=== PATIENT | female | born 1940 | race Caucasian/White ===

== ENCOUNTER 2016-12-10 12:01 | Inpatient (IN) | payer MEDICARE, MEDICAID ==
[~2016-12-10] VITALS: Ht 144.8 cm; Wt 76.5 kg
[~2016-12-10 12:01] MED LIST: ASPI-1093 PO; CALC667C PO; CARV6.2534 PO; CLOP75 PO; GABA-529 PO; HYDR-4174 PO; INSNOV SQ; ISOS60TA4 PO; LE SQ; LISI20TA PO; NITR0.4T27 SL; PANT40TA PO; PARO20TA24 PO; PRAV20TA4 PO
[2016-12-10 12:17] LABS: GLUCOSE,POINT OF CARE 152 MG/DL (70-110)
[2016-12-10] MEDS ORDERED: RANI150T7 PO (13:57)
[2016-12-10] MEDS ORDERED: OMEP20 PO (13:57)
[2016-12-10] MEDS ORDERED: METO5TAB95 PO (13:57)
[2016-12-10] MEDS ORDERED: RANO500T3 PO (13:57)
[2016-12-10] MEDS ORDERED: MECL-111 PO (13:57)
[2016-12-10 14:01] LABS: BASOPHILS % (AUTO) 2.4 % (0.0-2.0); EOSINOPHILS % (AUTO) 1.9 % (1.0-6.0); HEMATOCRIT 38.1 % (36-46); HEMOGLOBIN 12.1 g/dL (12.0-16.0); LYMPHOCYTES # (AUTO) 1.2 K/uL (1.0-4.8); LYMPHOCYTES % (AUTO) 21.4 % (22.0-44.0); MEAN CORPUSCULAR HEMOGLOBIN 27.5 pg (26.0-34.0); MEAN CORPUSCULAR HGB CONC 31.7 G/dL (31.0-37.0); MEAN CORPUSCULAR VOLUME 87 fL (80-100); MONOCYTES # (AUTO) 0.6 K/uL (0.1-1.0); NEUTROPHILS # (AUTO) 3.7 K/uL (1.8-7.7); NEUTROPHILS % (AUTO) 64.3 % (40.0-70.0); PLATELET COUNT (AUTO) 132 K/uL (150-450); RED BLOOD CELL COUNT(AUTO) 4.39 MIL/uL (4.00-5.20); RED CELL DISTRIBUTION WIDTH 19.5 % (11.5-14.5); WHITE BLOOD COUNT (AUTO) 5.8 K/uL (4.5-11.0)
[2016-12-10 14:26] LABS: ANION GAP 11 mmol/L (8-16); CARBON DIOXIDE 29 mmol/L (22-29); CHLORIDE 97 mmol/L (98-107); CREATININE 2.83 mg/dL (0.60-1.30); GLOMERULAR FILTR. RATE CALC 16 mL/min (>60); POTASSIUM 3.6 mmol/L (3.5-5.1); SODIUM SERUM 137 mmol/L (136-145); UREA NITROGEN, BLOOD 21 mg/dL (7-18)
[2016-12-10 14:27] LABS: CALCIUM, TOTAL 8.3 mg/dL (8.8-10.5)
[2016-12-10 14:31] LABS: ALANINE AMINOTRANSFERASE 12 U/L (12-78); ASPARTATE AMINOTRANSFERASE 19 U/L (15-37); B-TYPE NATRIURETIC PEPTIDE > 5000 pg/mL (0-100); CREATINE KINASE, TOTAL 24 U/L (26-192); TOTAL PROTEIN, SERUM 6.8 g/dL (6.4-8.2)
[2016-12-10 17:49] LABS: INR 1.1 (0.9-1.1); PROTHROMBIN TIME 11.8 SEC (9.4-11.6)
[2016-12-10 17:52] LABS: RBC MORPHOLOGY COMMENT ABNORMAL RBC MORPH
[2016-12-10] MEDS ORDERED: ONDANSETRON HCL 4 MG/2 ML VIAL IVP PRN (20:15)
[2016-12-10] MEDS ORDERED: ACETAMINOPHEN 325 MG TABLET PO PRN (20:15)
[2016-12-10] MEDS ORDERED: 0.9% SODIUM CHLORIDE 10 ML SYRINGE IVP PRN (20:15)
[2016-12-10 21:27] VITALS: BP 124/61
[2016-12-11] VITALS (7 sets, daily range): BP systolic 100–130; BP diastolic 53–66
[2016-12-11] MEDS ORDERED: NITROGLYCERIN 0.4 MG SUBLINGUAL TABLET #25 SL PRN (00:30)
[2016-12-11] MEDS: CLOPIDOGREL BISULFATE 75 MG TABLET PO SCH (08:48)
[2016-12-11] MEDS: CARVEDILOL 6.25 MG TABLET PO SCH ×2 (08:48→20:31)
[2016-12-11] MEDS: HydrALAZINE HCL 50 MG TABLET PO SCH ×2 (08:48→15:41)
[2016-12-11] MEDS: ASPIRIN 81 MG EC TABLET PO SCH (08:48)
[2016-12-11] MEDS: MECLIZINE HCL 25 MG TABLET PO SCH ×3 (08:48→20:30)
[2016-12-11] MEDS: METOCLOPRAMIDE HCL 5 MG TABLET PO SCH ×3 (08:49→20:31)
[2016-12-11] MEDS: RANITIDINE HCL 150 MG TABLET PO SCH (08:49)
[2016-12-11] MEDS: RANOLAZINE 500 MG SR TABLET PO SCH ×2 (08:49→20:31)
[2016-12-11] MEDS: LISINOPRIL 20 MG TABLET PO SCH (08:49)
[2016-12-11] MEDS: INSULIN DETEMIR 100 UNITS/ML SQ SCH ×2 (08:51→20:37)
[2016-12-11] MEDS ORDERED: OMEPRAZOLE 20 MG CAPSULE PO SCH (09:00)
[2016-12-11] MEDS ORDERED: DEXTROSE 50%-WATER 25 GM/50 ML SYRINGE IVP PRN (14:45)
[2016-12-11 19:22] LABS: GLUCOSE,POINT OF CARE 90 MG/DL (70-110)
[2016-12-11 19:22] LABS: GLUCOSE,POINT OF CARE 155 MG/DL (70-110)
[2016-12-11] MEDS: PRAVASTATIN SODIUM 20 MG TABLET PO SCH (20:30)
[2016-12-11] MEDS: GABAPENTIN 100 MG CAPSULE PO SCH (20:31)
[2016-12-11] MEDS: INSULIN ASPART 100 UNITS/ML SQ PRN (20:40)
[2016-12-11] MEDS: ISOSORBIDE MONONITRATE 30 MG ER TABLET PO SCH (20:46)
[2016-12-12 03:41] LABS: GLUCOSE COMMENT 1 Received Meds; GLUCOSE,POINT OF CARE 151 MG/DL (70-110)
[2016-12-12 04:37] VITALS: BP 95/52
[2016-12-12 06:57] LABS: EOSINOPHILS % (AUTO) 4.9 % (1.0-6.0); HEMATOCRIT 35.7 % (36-46); HEMOGLOBIN 11.3 g/dL (12.0-16.0); LYMPHOCYTES # (AUTO) 1.1 K/uL (1.0-4.8); MEAN CORPUSCULAR HEMOGLOBIN 27.6 pg (26.0-34.0); MEAN CORPUSCULAR HGB CONC 31.6 G/dL (31.0-37.0); MEAN CORPUSCULAR VOLUME 88 fL (80-100); MONOCYTES # (AUTO) 0.6 K/uL (0.1-1.0); MONOCYTES % (AUTO) 11.3 % (2.0-9.0); NEUTROPHILS # (AUTO) 2.9 K/uL (1.8-7.7); NEUTROPHILS % (AUTO) 59.8 % (40.0-70.0); PLATELET COUNT (AUTO) 146 K/uL (150-450); RED BLOOD CELL COUNT(AUTO) 4.08 MIL/uL (4.00-5.20); RED CELL DISTRIBUTION WIDTH 19.8 % (11.5-14.5); WHITE BLOOD COUNT (AUTO) 4.9 K/uL (4.5-11.0)
[2016-12-12 07:07] LABS: ALBUMIN 2.8 g/dL (3.4-5.0); BILIRUBIN,TOTAL 0.9 mg/dL (0.1-1.0); CALCIUM, TOTAL 7.6 mg/dL (8.8-10.5); CHOL/HDL RATIO 2.2 (3.9-5.7); CREATININE 4.76 mg/dL (0.60-1.30); MAGNESIUM 2.1 mg/dL (1.80-2.40); POTASSIUM 3.9 mmol/L (3.5-5.1); TOTAL PROTEIN, SERUM 6.5 g/dL (6.4-8.2)
[2016-12-12 07:53] VITALS: BP 109/53
[2016-12-12] MEDS: ISOSORBIDE MONONITRATE 30 MG ER TABLET PO SCH ×2 (09:00→21:18)
[2016-12-12] MEDS: LISINOPRIL 20 MG TABLET PO SCH (09:00)
[2016-12-12] MEDS: CARVEDILOL 6.25 MG TABLET PO SCH ×2 (09:00→21:17)
[2016-12-12] MEDS: MECLIZINE HCL 25 MG TABLET PO SCH ×3 (09:06→21:18)
[2016-12-12] MEDS: ASPIRIN 81 MG EC TABLET PO SCH (09:06)
[2016-12-12] MEDS: CLOPIDOGREL BISULFATE 75 MG TABLET PO SCH (09:07)
[2016-12-12] MEDS: RANOLAZINE 500 MG SR TABLET PO SCH ×2 (09:07→21:17)
[2016-12-12] MEDS: METOCLOPRAMIDE HCL 5 MG TABLET PO SCH ×3 (09:07→21:18)
[2016-12-12] MEDS: RANITIDINE HCL 150 MG TABLET PO SCH (09:07)
[2016-12-12] MEDS: INSULIN DETEMIR 100 UNITS/ML SQ SCH ×2 (09:10→21:00)
[2016-12-12 10:25] LABS: RBC MORPHOLOGY COMMENT ABNORMAL RBC MORPH
[2016-12-12] MEDS ORDERED: INSLAN SQ (10:49)
[2016-12-12 11:30] VITALS: BP 102/54
[2016-12-12] MEDS ORDERED: SODIUM CHLORIDE 0.9% 2,000 ML IV ONE (13:11)
[2016-12-12] MEDS: PANTOPRAZOLE SODIUM 40 MG DR TABLET PO SCH (15:37)
[2016-12-12 15:54] VITALS: BP 131/67
[2016-12-12 19:39] VITALS: BP 132/62
[2016-12-12 20:03] LABS: GLUCOSE,POINT OF CARE 113 MG/DL (70-110)
[2016-12-12] MEDS: ACETAMINOPHEN 325 MG TABLET PO PRN (21:17)
[2016-12-12] MEDS: GABAPENTIN 100 MG CAPSULE PO SCH (21:18)
[2016-12-12] MEDS: PRAVASTATIN SODIUM 20 MG TABLET PO SCH (21:18)
[2016-12-12] MEDS: INSULIN ASPART 100 UNITS/ML SQ PRN (21:28)
[2016-12-12 23:01] LABS: GLUCOSE COMMENT 1 Received Meds; GLUCOSE,POINT OF CARE 205 MG/DL (70-110)
[2016-12-13 00:08] VITALS: BP 116/59
[2016-12-13 04:20] VITALS: BP 103/54
[2016-12-13 05:47] LABS: GLUCOSE,POINT OF CARE 76 MG/DL (70-110)
[2016-12-13 06:05] LABS: BASOPHILS # (AUTO) 0.07 K/uL (0.00-0.20); BASOPHILS % (AUTO) 1.4 % (0.0-2.0); EOSINOPHILS # (AUTO) 0.17 K/uL (0.00-0.70); EOSINOPHILS % (AUTO) 3.56 % (1.0-6.0); HEMATOCRIT 35.7 % (36-46); HEMOGLOBIN 11.7 g/dL (12.0-16.0); LYMPHOCYTES # (AUTO) 1.3 K/uL (1.0-4.8); LYMPHOCYTES % (AUTO) 26.7 % (22.0-44.0); MEAN CORPUSCULAR HEMOGLOBIN 28.5 pg (26.0-34.0); MEAN CORPUSCULAR HGB CONC 32.7 G/dL (31.0-37.0); MEAN CORPUSCULAR VOLUME 87 fL (80-100); MONOCYTES # (AUTO) 0.5 K/uL (0.1-1.0); MONOCYTES % (AUTO) 11.4 % (2.0-9.0); NEUTROPHILS # (AUTO) 2.7 K/uL (1.8-7.7); PLATELET COUNT (AUTO) 134 K/uL (150-450); RED BLOOD CELL COUNT(AUTO) 4.09 MIL/uL (4.00-5.20); WHITE BLOOD COUNT (AUTO) 4.8 K/uL (4.5-11.0)
[2016-12-13 07:07] LABS: CALCIUM, TOTAL 7.4 mg/dL (8.8-10.5); CREATININE 3.28 mg/dL (0.60-1.30); MAGNESIUM 1.7 mg/dL (1.80-2.40); PHOSPHORUS 4.5 mg/dL (2.5-4.9); POTASSIUM 3.9 mmol/L (3.5-5.1)
[2016-12-13 07:52] VITALS: BP 105/54
[2016-12-13] MEDS: METOCLOPRAMIDE HCL 5 MG TABLET PO SCH ×3 (08:50→20:47)
[2016-12-13] MEDS: PANTOPRAZOLE SODIUM 40 MG DR TABLET PO SCH (08:51)
[2016-12-13] MEDS: CLOPIDOGREL BISULFATE 75 MG TABLET PO SCH (08:51)
[2016-12-13] MEDS: RANITIDINE HCL 150 MG TABLET PO SCH (08:52)
[2016-12-13] MEDS: RANOLAZINE 500 MG SR TABLET PO SCH ×2 (08:52→20:47)
[2016-12-13] MEDS: ASPIRIN 81 MG EC TABLET PO SCH (08:53)
[2016-12-13] MEDS: MECLIZINE HCL 25 MG TABLET PO SCH ×3 (08:53→20:47)
[2016-12-13] MEDS: INSULIN DETEMIR 100 UNITS/ML SQ SCH ×2 (09:47→20:59)
[2016-12-13 11:35] VITALS: BP 101/52
[2016-12-13] MEDS: ISOSORBIDE MONONITRATE 30 MG ER TABLET PO SCH ×2 (11:57→21:00)
[2016-12-13] MEDS: LISINOPRIL 20 MG TABLET PO SCH (11:58)
[2016-12-13] MEDS: CARVEDILOL 6.25 MG TABLET PO SCH ×2 (11:58→21:00)
[2016-12-13] MEDS: INSULIN ASPART 100 UNITS/ML SQ PRN ×2 (12:12→20:59)
[2016-12-13] MEDS: VITAMIN B COMP/VIT C/FOLIC ACID CAPSULE PO SCH (12:27)
[2016-12-13 15:54] VITALS: BP 100/54
[2016-12-13 19:27] LABS: GLUCOSE COMMENT 1 Received Meds; GLUCOSE,POINT OF CARE 135 MG/DL (70-110)
[2016-12-13 19:27] LABS: GLUCOSE COMMENT 1 Received Meds; GLUCOSE,POINT OF CARE 145 MG/DL (70-110)
[2016-12-13 19:32] VITALS: BP 96/53
[2016-12-13] MEDS: GABAPENTIN 100 MG CAPSULE PO SCH (20:47)
[2016-12-13] MEDS: PRAVASTATIN SODIUM 20 MG TABLET PO SCH (20:47)
[2016-12-13] MEDS: ACETAMINOPHEN 325 MG TABLET PO PRN (21:12)
[2016-12-14] VITALS (8 sets, daily range): BP systolic 88–102; BP diastolic 47–55
[2016-12-14 00:01] LABS: GLUCOSE,POINT OF CARE 171 MG/DL (70-110)
[2016-12-14 06:12] LABS: GLUCOSE,POINT OF CARE 71 MG/DL (70-110)
[2016-12-14 07:15] LABS: BASOPHILS % (AUTO) 0.9 % (0.0-2.0); EOSINOPHILS % (AUTO) 3.5 % (1.0-6.0); HEMATOCRIT 37.9 % (36-46); LYMPHOCYTES # (AUTO) 1.9 K/uL (1.0-4.8); MEAN CORPUSCULAR HGB CONC 31.8 G/dL (31.0-37.0); MEAN CORPUSCULAR VOLUME 88 fL (80-100); MONOCYTES # (AUTO) 0.6 K/uL (0.1-1.0); MONOCYTES % (AUTO) 10.6 % (2.0-9.0); NEUTROPHILS # (AUTO) 3.2 K/uL (1.8-7.7); PLATELET COUNT (AUTO) 147 K/uL (150-450); RED CELL DISTRIBUTION WIDTH 20.2 % (11.5-14.5)
[2016-12-14 07:51] LABS: BILIRUBIN,TOTAL 0.9 mg/dL (0.1-1.0); CALCIUM, TOTAL 7.4 mg/dL (8.8-10.5); CREATININE 4.3 mg/dL (0.60-1.30); MAGNESIUM 1.8 mg/dL (1.80-2.40); POTASSIUM 4.6 mmol/L (3.5-5.1); TOTAL PROTEIN, SERUM 6.4 g/dL (6.4-8.2)
[2016-12-14] MEDS: CARVEDILOL 6.25 MG TABLET PO SCH ×2 (07:54→20:37)
[2016-12-14] MEDS: LISINOPRIL 20 MG TABLET PO SCH (07:54)
[2016-12-14] MEDS: ISOSORBIDE MONONITRATE 30 MG ER TABLET PO SCH ×2 (07:55→20:38)
[2016-12-14 08:09] LABS: RBC MORPHOLOGY COMMENT ABNORMAL RBC MORPH
[2016-12-14] MEDS: PANTOPRAZOLE SODIUM 40 MG DR TABLET PO SCH (08:40)
[2016-12-14] MEDS: CLOPIDOGREL BISULFATE 75 MG TABLET PO SCH (08:40)
[2016-12-14] MEDS: MECLIZINE HCL 25 MG TABLET PO SCH ×3 (08:41→20:15)
[2016-12-14] MEDS: METOCLOPRAMIDE HCL 5 MG TABLET PO SCH ×3 (08:41→20:15)
[2016-12-14] MEDS: ASPIRIN 81 MG EC TABLET PO SCH (08:41)
[2016-12-14] MEDS: RANITIDINE HCL 150 MG TABLET PO SCH (08:41)
[2016-12-14] MEDS: RANOLAZINE 500 MG SR TABLET PO SCH ×2 (08:41→20:16)
[2016-12-14] MEDS: VITAMIN B COMP/VIT C/FOLIC ACID CAPSULE PO SCH (08:45)
[2016-12-14] MEDS: INSULIN DETEMIR 100 UNITS/ML SQ SCH ×2 (08:50→20:18)
[2016-12-14 19:27] LABS: GLUCOSE,POINT OF CARE 111 MG/DL (70-110)
[2016-12-14] MEDS: PRAVASTATIN SODIUM 20 MG TABLET PO SCH (20:15)
[2016-12-14] MEDS: GABAPENTIN 100 MG CAPSULE PO SCH (20:15)
[2016-12-14] MEDS: ACETAMINOPHEN 325 MG TABLET PO PRN (20:16)
[2016-12-14] MEDS: INSULIN ASPART 100 UNITS/ML SQ PRN (20:18)
[2016-12-14 23:57] LABS: GLUCOSE,POINT OF CARE 144 MG/DL (70-110)
[2016-12-15] VITALS (13 sets, daily range): BP systolic 87–119; BP diastolic 49–66
[2016-12-15 06:51] LABS: GLUCOSE COMMENT 1 Juice/Food/D50 Given; GLUCOSE,POINT OF CARE 70 MG/DL (70-110)
[2016-12-15 07:11] LABS: BASOPHILS % (AUTO) 0.8 % (0.0-2.0); EOSINOPHILS % (AUTO) 3.1 % (1.0-6.0); HEMATOCRIT 39.3 % (36-46); HEMOGLOBIN 12.2 g/dL (12.0-16.0); LYMPHOCYTES # (AUTO) 2.3 K/uL (1.0-4.8); MEAN CORPUSCULAR HEMOGLOBIN 27.5 pg (26.0-34.0); MEAN CORPUSCULAR HGB CONC 31.2 G/dL (31.0-37.0); MEAN CORPUSCULAR VOLUME 88 fL (80-100); MONOCYTES # (AUTO) 0.6 K/uL (0.1-1.0); MONOCYTES % (AUTO) 9.1 % (2.0-9.0); NEUTROPHILS # (AUTO) 3.8 K/uL (1.8-7.7); PLATELET COUNT (AUTO) 139 K/uL (150-450); RED BLOOD CELL COUNT(AUTO) 4.45 MIL/uL (4.00-5.20); RED CELL DISTRIBUTION WIDTH 21.2 % (11.5-14.5)
[2016-12-15 07:29] LABS: INR 1.1 (0.9-1.1); PROTHROMBIN TIME 12.1 SEC (9.4-11.6)
[2016-12-15 07:35] LABS: ALBUMIN 2.9 g/dL (3.4-5.0); BILIRUBIN,TOTAL 0.9 mg/dL (0.1-1.0); CALCIUM, TOTAL 7.4 mg/dL (8.8-10.5); MAGNESIUM 1.9 mg/dL (1.80-2.40); POTASSIUM 5.1 mmol/L (3.5-5.1); TOTAL PROTEIN, SERUM 6.6 g/dL (6.4-8.2)
[2016-12-15 08:22] LABS: CREATININE 5.17 mg/dL (0.60-1.30)
[2016-12-15] MEDS: INSULIN DETEMIR 100 UNITS/ML SQ SCH ×2 (09:00→21:00)
[2016-12-15] MEDS: LISINOPRIL 5 MG TABLET PO SCH (09:00)
[2016-12-15] MEDS: CARVEDILOL 6.25 MG TABLET PO SCH ×2 (09:00→21:00)
[2016-12-15] MEDS: ASPIRIN 81 MG EC TABLET PO SCH (09:00)
[2016-12-15] MEDS: ISOSORBIDE MONONITRATE 30 MG ER TABLET PO SCH ×2 (09:00→21:00)
[2016-12-15 09:12] LABS: RBC MORPHOLOGY COMMENT ABNORMAL RBC MORPH
[2016-12-15] MEDS: RANOLAZINE 500 MG SR TABLET PO SCH ×2 (11:53→21:20)
[2016-12-15] MEDS: RANITIDINE HCL 150 MG TABLET PO SCH (11:54)
[2016-12-15] MEDS: PANTOPRAZOLE SODIUM 40 MG DR TABLET PO SCH (11:54)
[2016-12-15] MEDS: MECLIZINE HCL 25 MG TABLET PO SCH ×3 (11:54→21:20)
[2016-12-15] MEDS: METOCLOPRAMIDE HCL 5 MG TABLET PO SCH ×3 (11:54→21:20)
[2016-12-15] MEDS: VITAMIN B COMP/VIT C/FOLIC ACID CAPSULE PO SCH (11:55)
[2016-12-15] MEDS ORDERED: LIDOCAINE HCL/PF 1% 30 ML VIAL ONE ×2 (12:11→13:17)
[2016-12-15] MEDS ORDERED: IOHEXOL 300 MG/ML 50 ML VIAL ONE (12:11)
[2016-12-15] MEDS ORDERED: SODIUM BICARBONATE 50 MEQ/50 ML VIAL ONE (12:11)
[2016-12-15] MEDS ORDERED: VANCOMYCIN HCL 1 GM/VIAL ONE (12:33)
[2016-12-15 12:37] LABS: GLUCOSE,POINT OF CARE 183 MG/DL (70-110)
[2016-12-15] MEDS ORDERED: SODIUM CHLORIDE 0.9% 500 ML IV ONE (13:09)
[2016-12-15] MEDS ORDERED: BUPIVACAINE LIPOSOME/PF 1.3%-13.3MG/ML SUSPENSION 20 ML VIAL INJ ONE (13:15)
[2016-12-15] MEDS ORDERED: *CLINICAL-RX DOSING [ENTER DRUG IN COMMENTS] CLINICAL ONE (13:15)
[2016-12-15] MEDS ORDERED: 0.9% SODIUM CHLORIDE 10 ML SYRINGE IVP PRN (13:15)
[2016-12-15] MEDS ORDERED: VANCOMYCIN HCL 1 GM/VIAL IRRIG ONE (13:15)
[2016-12-15] MEDS ORDERED: LIDOCAINE 1% 30 ML/SOD BICARB 8.4% 4 ML SQ ONE (13:15)
[2016-12-15] MEDS ORDERED: DESMOPRESSIN ACETATE 23 MCG in SODIUM CHLORIDE 0.9% 50 ML IV ONE (13:30)
[2016-12-15] MEDS: GABAPENTIN 100 MG CAPSULE PO SCH (21:20)
[2016-12-15] MEDS: PRAVASTATIN SODIUM 20 MG TABLET PO SCH (21:20)
[2016-12-15] MEDS: ACETAMINOPHEN 325 MG TABLET PO PRN (21:21)
[2016-12-16] MEDS ORDERED: *CLINICAL-RX DOSING [ENTER DRUG IN COMMENTS] CLINICAL ONE (01:00)
[2016-12-16 05:03] VITALS: BP 103/66
[2016-12-16 06:26] LABS: BASOPHILS % (AUTO) 1.1 % (0.0-2.0); HEMOGLOBIN 11.6 g/dL (12.0-16.0); LYMPHOCYTES # (AUTO) 1.6 K/uL (1.0-4.8); LYMPHOCYTES % (AUTO) 18.9 % (22.0-44.0); MEAN CORPUSCULAR HEMOGLOBIN 28.1 pg (26.0-34.0); MEAN CORPUSCULAR HGB CONC 32.3 G/dL (31.0-37.0); MEAN CORPUSCULAR VOLUME 87 fL (80-100); MONOCYTES # (AUTO) 0.9 K/uL (0.1-1.0); MONOCYTES % (AUTO) 10.6 % (2.0-9.0); NEUTROPHILS # (AUTO) 5.5 K/uL (1.8-7.7); NEUTROPHILS % (AUTO) 67.4 % (40.0-70.0); PLATELET COUNT (AUTO) 133 K/uL (150-450); RED BLOOD CELL COUNT(AUTO) 4.13 MIL/uL (4.00-5.20); RED CELL DISTRIBUTION WIDTH 20.2 % (11.5-14.5); WHITE BLOOD COUNT (AUTO) 8.2 K/uL (4.5-11.0)
[2016-12-16 06:43] LABS: RBC MORPHOLOGY COMMENT ABNORMAL RBC MORPH
[2016-12-16 06:47] LABS: GLUCOSE,POINT OF CARE 132 MG/DL (70-110)
[2016-12-16 06:47] LABS: GLUCOSE,POINT OF CARE 64 MG/DL (70-110)
[2016-12-16 07:12] VITALS: BP 138/57
[2016-12-16 07:22] LABS: ALBUMIN 2.9 g/dL (3.4-5.0); BILIRUBIN,TOTAL 1.1 mg/dL (0.1-1.0); CALCIUM, TOTAL 7.8 mg/dL (8.8-10.5); CREATININE 3.6 mg/dL (0.60-1.30); MAGNESIUM 1.7 mg/dL (1.80-2.40); POTASSIUM 4.7 mmol/L (3.5-5.1); TOTAL PROTEIN, SERUM 6.4 g/dL (6.4-8.2)
[2016-12-16] MEDS ORDERED: CARVEDILOL 12.5 MG TABLET PO SCH (09:00)
[2016-12-16 09:23] LABS: GLUCOSE,POINT OF CARE 111 MG/DL (70-110)
[2016-12-16] MEDS: RANITIDINE HCL 150 MG TABLET PO SCH (09:54)
[2016-12-16] MEDS: ISOSORBIDE MONONITRATE 30 MG ER TABLET PO SCH (09:54)
[2016-12-16] MEDS: RANOLAZINE 500 MG SR TABLET PO SCH (09:54)
[2016-12-16] MEDS: METOCLOPRAMIDE HCL 5 MG TABLET PO SCH (09:54)
[2016-12-16] MEDS: VITAMIN B COMP/VIT C/FOLIC ACID CAPSULE PO SCH (09:55)
[2016-12-16] MEDS: MECLIZINE HCL 25 MG TABLET PO SCH (09:55)
[2016-12-16] MEDS: LISINOPRIL 5 MG TABLET PO SCH (09:55)
[2016-12-16] MEDS: ASPIRIN 81 MG EC TABLET PO SCH (09:56)
[2016-12-16] MEDS: PANTOPRAZOLE SODIUM 40 MG DR TABLET PO SCH (09:56)
[2016-12-16] MEDS: INSULIN DETEMIR 100 UNITS/ML SQ SCH (09:57)
[2016-12-16 11:04] VITALS: BP 118/62
[2016-12-16] MEDS ORDERED: SODIUM CHLORIDE 0.9% 250 ML IV ONE (12:10)
[2016-12-16] MEDS: INSULIN ASPART 100 UNITS/ML SQ PRN (12:18)
[2016-12-16 12:52] LABS: GLUCOSE,POINT OF CARE 179 MG/DL (70-110)
[2016-12-16] MEDS ORDERED: VANCOMYCIN HCL 500 MG in DEXTROSE 5%-WATER 100 ML IV ONE (13:00)
[2016-12-16 14:12] LABS: GLUCOSE COMMENT 1 Received Meds; GLUCOSE,POINT OF CARE 85 MG/DL (70-110)
[2016-12-16 14:12] LABS: GLUCOSE COMMENT 1 Juice/Food/D50 Given; GLUCOSE,POINT OF CARE 69 MG/DL (70-110)
[2016-12-16] MEDS ORDERED: CARV12 PO (14:42)
[2016-12-16] MEDS ORDERED: ISOS30TA6 PO (14:43)
[2016-12-16] MEDS ORDERED: LEVO250 PO (14:44)
[2016-12-16 14:52] LABS: GLUCOSE,POINT OF CARE 98 MG/DL (70-110)
[2016-12-16 14:52] LABS: GLUCOSE,POINT OF CARE 102 MG/DL (70-110)
[2016-12-16 14:52] LABS: GLUCOSE,POINT OF CARE 107 MG/DL (70-110)
[2016-12-16 15:08] VITALS: BP 122/66
[2016-12-16] MEDS ORDERED: DiphenhydrAMINE HCL 50 MG/ML VIAL IVP ONE (16:29)
[2016-12-16] MEDS ORDERED: LIDOCAINE HCL/PF 2% 5 ML VIAL INJ ONE (16:29)
[2016-12-16] MEDS ORDERED: PHENYLEPHRINE HCL 10 MG/ML VIAL IVP ONE (16:29)
[2016-12-16] MEDS ORDERED: PROPOFOL 1% 20 ML VIAL IVP ONE (16:29)
[2016-12-16] MEDS ORDERED: 0.9% SODIUM CHLORIDE 10 ML VIAL IVP ONE (16:29)
[2016-12-16] MEDS ORDERED: FentaNYL CITRATE-PF 100 MCG/2 ML VIAL IVP ONE (16:29)
[2016-12-21 18:12] LABS: GLUCOSE,POINT OF CARE 107 MG/DL (70-110)
[2016-12-21 18:12] LABS: GLUCOSE COMMENT 1 Received Meds; GLUCOSE,POINT OF CARE 138 MG/DL (70-110)
[2016-12-21 18:12] LABS: GLUCOSE COMMENT 1 Juice/Food/D50 Given; GLUCOSE,POINT OF CARE 65 MG/DL (70-110)
[2016-12-21 18:12] LABS: GLUCOSE,POINT OF CARE 113 MG/DL (70-110)
[2016-12-21 18:12] LABS: GLUCOSE COMMENT 1 Juice/Food/D50 Given; GLUCOSE,POINT OF CARE 65 MG/DL (70-110)
== END 2016-12-16 16:30 | disposition home or self-care (01) | DRG 226 ==
LOC: EMS 12:04 → 5N 20:23
PROVIDERS: ADMIT Family Medicine; ATTEND Family Medicine
PROC: 0JH608Z Insertion of Defibrillator Generator into Chest Subcutaneous Tissue and Fascia, Open Approach (ICD-10-PCS; principal; 2016-12-15)
PROC: 02HK3KZ Insertion of Defibrillator Lead into Right Ventricle, Percutaneous Approach (ICD-10-PCS; 2016-12-15)
PROC: 02H63KZ Insertion of Defibrillator Lead into Right Atrium, Percutaneous Approach (ICD-10-PCS; 2016-12-15)
PROC: 5A1D60Z (ICD-10-PCS; 2016-12-15)
PROC: 4B02XTZ Measurement of Cardiac Defibrillator, External Approach (ICD-10-PCS; 2016-12-16)
DX: I21.4 Non-ST elevation (NSTEMI) myocardial infarction (principal); N18.6 End stage renal disease; I50.43 Acute on chronic combined systolic (congestive) and diastolic (congestive) heart failure; I42.9 Cardiomyopathy, unspecified; I13.2 Hypertensive heart and chronic kidney disease with heart failure and with stage 5 chronic kidney disease, or end stage renal disease; D63.1 Anemia in chronic kidney disease; E11.21 Type 2 diabetes mellitus with diabetic nephropathy; E11.22 Type 2 diabetes mellitus with diabetic chronic kidney disease; E11.51 Type 2 diabetes mellitus with diabetic peripheral angiopathy without gangrene; E11.69 Type 2 diabetes mellitus with other specified complication; E78.00 Pure hypercholesterolemia, unspecified; E78.5 Hyperlipidemia, unspecified; I25.110 Atherosclerotic heart disease of native coronary artery with unstable angina pectoris; Z79.01 Long term (current) use of anticoagulants; Z79.82 Long term (current) use of aspirin; Z79.4 Long term (current) use of insulin; Z79.899 Other long term (current) drug therapy; Z87.891 Personal history of nicotine dependence; Z88.0 Allergy status to penicillin; Z89.512 Acquired absence of left leg below knee; Z95.5 Presence of coronary angioplasty implant and graft; Z95.810 Presence of automatic (implantable) cardiac defibrillator; Z99.2 Dependence on renal dialysis
CPT/HCPCS: 33249; 71020; 82962; 83735; 84100; 87081; 90935; 93005; 93306; 99285; C9290; J0690; J1200; J2370; J2597; J2704; J3010; J3370; J3490; J7030; J7050; J7060; Q9967

== ENCOUNTER 2017-02-02 11:17 | Inpatient (IN) | payer MEDICARE, MEDICAID ==
[~2017-02-02] VITALS: Ht 160 cm; Wt 75.5 kg
[~2017-02-02 11:17] MED LIST changes: -CALC667C PO; +CARV12 PO; -CARV6.2534 PO; +INSLAN SQ; +ISOS30TA6 PO; -ISOS60TA4 PO; -LE SQ; +LEVO250 PO; +MECL-111 PO; +METO5TAB95 PO; +OMEP20 PO; -PANT40TA PO; -PARO20TA24 PO; +RANI150T7 PO; +RANO500T3 PO
[2017-02-02 12:12] LABS: GLUCOSE,POINT OF CARE 139 MG/DL (70-110)
[2017-02-02 13:49] LABS: BASOPHILS % (AUTO) 0.2 % (0.0-2.0); EOSINOPHILS % (AUTO) 0.3 % (1.0-6.0); HEMATOCRIT 37.2 % (36-46); HEMOGLOBIN 11.7 g/dL (12.0-16.0); LYMPHOCYTES # (AUTO) 0.7 K/uL (1.0-4.8); LYMPHOCYTES % (AUTO) 8.2 % (22.0-44.0); MEAN CORPUSCULAR HEMOGLOBIN 28.3 pg (26.0-34.0); MEAN CORPUSCULAR HGB CONC 31.3 G/dL (31.0-37.0); MEAN CORPUSCULAR VOLUME 90 fL (80-100); MONOCYTES # (AUTO) 0.6 K/uL (0.1-1.0); MONOCYTES % (AUTO) 7.1 % (2.0-9.0); NEUTROPHILS # (AUTO) 6.9 K/uL (1.8-7.7); NEUTROPHILS % (AUTO) 84.2 % (40.0-70.0); RED BLOOD CELL COUNT(AUTO) 4.12 MIL/uL (4.00-5.20); RED CELL DISTRIBUTION WIDTH 21.1 % (11.5-14.5); WHITE BLOOD COUNT (AUTO) 8.2 K/uL (4.5-11.0)
[2017-02-02 13:55] LABS: ANION GAP 6 mmol/L (8-16); CALCIUM, TOTAL 8.5 mg/dL (8.8-10.5); CARBON DIOXIDE 33 mmol/L (22-29); CHLORIDE 97 mmol/L (98-107); CREATININE 2.97 mg/dL (0.60-1.30); GLOMERULAR FILTR. RATE CALC 15 mL/min (>60); POTASSIUM 3.8 mmol/L (3.5-5.1); SODIUM SERUM 136 mmol/L (136-145); UREA NITROGEN, BLOOD 23 mg/dL (7-18)
[2017-02-02 14:02] LABS: ALANINE AMINOTRANSFERASE 15 U/L (12-78); ALBUMIN 2.6 g/dL (3.4-5.0); ASPARTATE AMINOTRANSFERASE 20 U/L (15-37); BILIRUBIN,TOTAL 1.6 mg/dL (0.1-1.0); CREATINE KINASE, TOTAL 39 U/L (26-192); TOTAL PROTEIN, SERUM 6.2 g/dL (6.4-8.2)
[2017-02-02 14:08] LABS: INR 1.2 (0.9-1.1); PROTHROMBIN TIME 12.2 SEC (9.4-11.6)
[2017-02-02 14:12] LABS: PLATELET COUNT (AUTO) 97 K/uL (150-450); RBC MORPHOLOGY COMMENT ABNORMAL RBC MORPH
[2017-02-02 14:33] LABS: B-TYPE NATRIURETIC PEPTIDE > 5000 pg/mL (0-100)
[2017-02-02] MEDS ORDERED: BACITRACIN 0.9 GM PACKET OINTMENT TP ONE (15:00)
[2017-02-02] MEDS ORDERED: ACETAMINOPHEN 325 MG TABLET PO PRN (15:15)
[2017-02-02] MEDS ORDERED: ONDANSETRON HCL 4 MG/2 ML VIAL IVP PRN (15:15)
[2017-02-02] MEDS ORDERED: 0.9% SODIUM CHLORIDE 10 ML SYRINGE IVP PRN (15:15)
[2017-02-02 17:58] VITALS: BP 92/51
[2017-02-02] MEDS: VITAMIN B COMP/VIT C/FOLIC ACID CAPSULE PO SCH (18:42)
[2017-02-02 19:32] VITALS: BP 100/53
[2017-02-03] VITALS (13 sets, daily range): BP systolic 70–117; BP diastolic 34–77
[2017-02-03] MEDS ORDERED: SODIUM CHLORIDE 0.9% 250 ML IV ONE (00:15)
[2017-02-03 08:02] LABS: CHOL/HDL RATIO 2.4 (3.9-5.7); CREATININE 3.67 mg/dL (0.60-1.30); MAGNESIUM 1.9 mg/dL (1.80-2.40); PHOSPHORUS 3.4 mg/dL (2.5-4.9); POTASSIUM 3.9 mmol/L (3.5-5.1)
[2017-02-03] MEDS ORDERED: DOPamine HCL 400 MG/D5%-WATER 250 ML IV SCH (08:45)
[2017-02-03] MEDS: DOPamine HCL 400 MG/D5%-WATER 250 ML IV SCH ×2 (09:20→11:06)
[2017-02-03] MEDS: VITAMIN B COMP/VIT C/FOLIC ACID CAPSULE PO SCH (09:22)
[2017-02-03] MEDS: CLOPIDOGREL BISULFATE 75 MG TABLET PO SCH (15:15)
[2017-02-03] MEDS ORDERED: NITROGLYCERIN 0.4 MG SUBLINGUAL TABLET #25 SL PRN (15:15)
[2017-02-03] MEDS: RANITIDINE HCL 150 MG TABLET PO SCH (15:15)
[2017-02-03] MEDS: OMEPRAZOLE 20 MG CAPSULE PO SCH (15:15)
[2017-02-03] MEDS: ASPIRIN 81 MG EC TABLET PO SCH (15:15)
[2017-02-03] MEDS ORDERED: DEXTROSE 50%-WATER 25 GM/50 ML SYG IVP PRN (15:30)
[2017-02-03] MEDS: METOCLOPRAMIDE HCL 5 MG TABLET PO SCH ×2 (16:00→21:00)
[2017-02-03] MEDS: MECLIZINE HCL 25 MG TABLET PO SCH ×2 (16:00→21:00)
[2017-02-03 18:07] LABS: GLUCOSE,POINT OF CARE 147 MG/DL (70-110)
[2017-02-03] MEDS: ISOSORBIDE MONONITRATE 30 MG ER TABLET PO SCH (20:59)
[2017-02-03 21:42] LABS: GLUCOSE,POINT OF CARE 123 MG/DL (70-110)
[2017-02-03] MEDS: PRAVASTATIN SODIUM 20 MG TABLET PO SCH (23:00)
[2017-02-03] MEDS: GABAPENTIN 100 MG CAPSULE PO SCH (23:00)
[2017-02-03] MEDS: RANOLAZINE 500 MG SR TABLET PO SCH (23:00)
[2017-02-03] MEDS: INSULIN DETEMIR 100 UNITS/ML SQ SCH (23:02)
[2017-02-04] VITALS: BP 108/75
[2017-02-04 04:00] VITALS: BP 109/56
[2017-02-04] MEDS: DOPamine HCL 400 MG/D5%-WATER 250 ML IV SCH ×2 (05:04→22:03)
[2017-02-04 06:03] LABS: BASOPHILS % (AUTO) 0.6 % (0.0-2.0); EOSINOPHILS % (AUTO) 1.9 % (1.0-6.0); HEMATOCRIT 37.6 % (36-46); HEMOGLOBIN 11.7 g/dL (12.0-16.0); LYMPHOCYTES # (AUTO) 1.5 K/uL (1.0-4.8); LYMPHOCYTES % (AUTO) 19.7 % (22.0-44.0); MEAN CORPUSCULAR HGB CONC 31.1 G/dL (31.0-37.0); MEAN CORPUSCULAR VOLUME 90 fL (80-100); MONOCYTES # (AUTO) 0.8 K/uL (0.1-1.0); MONOCYTES % (AUTO) 10.4 % (2.0-9.0); NEUTROPHILS # (AUTO) 5.1 K/uL (1.8-7.7); NEUTROPHILS % (AUTO) 67.4 % (40.0-70.0); PLATELET COUNT (AUTO) 104 K/uL (150-450); RED BLOOD CELL COUNT(AUTO) 4.18 MIL/uL (4.00-5.20); WHITE BLOOD COUNT (AUTO) 7.6 K/uL (4.5-11.0)
[2017-02-04 06:15] LABS: CREATININE 4.59 mg/dL (0.60-1.30); MAGNESIUM 1.9 mg/dL (1.80-2.40); PHOSPHORUS 3.9 mg/dL (2.5-4.9); POTASSIUM 3.9 mmol/L (3.5-5.1)
[2017-02-04 06:47] LABS: GLUCOSE,POINT OF CARE 125 MG/DL (70-110)
[2017-02-04 06:47] LABS: GLUCOSE,POINT OF CARE 54 MG/DL (70-110)
[2017-02-04 07:21] LABS: GLUCOSE COMMENT 1 Received Meds; GLUCOSE,POINT OF CARE 141 MG/DL (70-110)
[2017-02-04 07:35] LABS: RBC MORPHOLOGY COMMENT ABNORMAL RBC MORPH
[2017-02-04 08:00] VITALS: BP 112/68
[2017-02-04] MEDS: ISOSORBIDE MONONITRATE 30 MG ER TABLET PO SCH ×2 (09:23→22:04)
[2017-02-04] MEDS: ASPIRIN 81 MG EC TABLET PO SCH (09:23)
[2017-02-04] MEDS: RANITIDINE HCL 150 MG TABLET PO SCH (09:24)
[2017-02-04] MEDS: VITAMIN B COMP/VIT C/FOLIC ACID CAPSULE PO SCH (09:24)
[2017-02-04] MEDS: METOCLOPRAMIDE HCL 5 MG TABLET PO SCH ×3 (09:24→22:13)
[2017-02-04] MEDS: RANOLAZINE 500 MG SR TABLET PO SCH ×2 (09:24→22:03)
[2017-02-04] MEDS: MECLIZINE HCL 25 MG TABLET PO SCH ×3 (09:24→22:13)
[2017-02-04] MEDS: OMEPRAZOLE 20 MG CAPSULE PO SCH (09:24)
[2017-02-04] MEDS: CLOPIDOGREL BISULFATE 75 MG TABLET PO SCH (09:24)
[2017-02-04 12:00] VITALS: BP 91/48
[2017-02-04 15:01] LABS: GLUCOSE,POINT OF CARE 89 MG/DL (70-110)
[2017-02-04 16:00] VITALS: BP 117/73
[2017-02-04 17:27] LABS: GLUCOSE,POINT OF CARE 93 MG/DL (70-110)
[2017-02-04 20:00] VITALS: BP 107/65
[2017-02-04] MEDS: INSULIN DETEMIR 100 UNITS/ML SQ SCH (21:00)
[2017-02-04] MEDS: PRAVASTATIN SODIUM 20 MG TABLET PO SCH (22:03)
[2017-02-04] MEDS: GABAPENTIN 100 MG CAPSULE PO SCH (22:03)
[2017-02-05] VITALS: BP 117/80
[2017-02-05 01:31] LABS: GLUCOSE,POINT OF CARE 98 MG/DL (70-110)
[2017-02-05 04:10] VITALS: BP 97/40
[2017-02-05 05:25] LABS: BASOPHILS # (AUTO) 0.03 K/uL (0.00-0.20); BASOPHILS % (AUTO) 0.5 % (0.0-2.0); EOSINOPHILS # (AUTO) 0.13 K/uL (0.00-0.70); HEMATOCRIT 34.2 % (36-46); LYMPHOCYTES # (AUTO) 0.7 K/uL (1.0-4.8); MEAN CORPUSCULAR HEMOGLOBIN 29.1 pg (26.0-34.0); MEAN CORPUSCULAR VOLUME 91 fL (80-100); MONOCYTES # (AUTO) 0.6 K/uL (0.1-1.0); MONOCYTES % (AUTO) 9.2 % (2.0-9.0); NEUTROPHILS # (AUTO) 4.6 K/uL (1.8-7.7); NEUTROPHILS % (AUTO) 77.1 % (40.0-70.0); PLATELET COUNT (AUTO) 92 K/uL (150-450); RED BLOOD CELL COUNT(AUTO) 3.77 MIL/uL (4.00-5.20); RED CELL DISTRIBUTION WIDTH 20.8 % (11.5-14.5)
[2017-02-05 06:07] LABS: GLUCOSE,POINT OF CARE 83 MG/DL (70-110)
[2017-02-05 06:17] LABS: CALCIUM, TOTAL 8.1 mg/dL (8.8-10.5); CREATININE 2.84 mg/dL (0.60-1.30); MAGNESIUM 1.6 mg/dL (1.80-2.40); PHOSPHORUS 2.4 mg/dL (2.5-4.9); POTASSIUM 3.8 mmol/L (3.5-5.1)
[2017-02-05 08:00] VITALS: BP 84/75
[2017-02-05] MEDS ORDERED: MAGNESIUM OXIDE 400 MG TABLET PO ONE (08:00)
[2017-02-05] MEDS: RANITIDINE HCL 150 MG TABLET PO SCH (08:33)
[2017-02-05] MEDS: LEVOFLOXACIN 250 MG TABLET PO SCH (08:33)
[2017-02-05] MEDS: OMEPRAZOLE 20 MG CAPSULE PO SCH (08:33)
[2017-02-05] MEDS: VITAMIN B COMP/VIT C/FOLIC ACID CAPSULE PO SCH (08:34)
[2017-02-05] MEDS: MECLIZINE HCL 25 MG TABLET PO SCH ×3 (08:34→20:48)
[2017-02-05] MEDS: RANOLAZINE 500 MG SR TABLET PO SCH ×2 (08:34→20:48)
[2017-02-05] MEDS: METOCLOPRAMIDE HCL 5 MG TABLET PO SCH ×3 (08:34→20:48)
[2017-02-05] MEDS: CLOPIDOGREL BISULFATE 75 MG TABLET PO SCH (08:34)
[2017-02-05] MEDS: ISOSORBIDE MONONITRATE 30 MG ER TABLET PO SCH ×2 (08:34→20:48)
[2017-02-05] MEDS: ASPIRIN 81 MG EC TABLET PO SCH (08:35)
[2017-02-05] MEDS ORDERED: DOPamine HCL 400 MG/D5%-WATER 250 ML IV SCH (09:00)
[2017-02-05 09:31] LABS: GLUCOSE,POINT OF CARE 134 MG/DL (70-110)
[2017-02-05 09:47] LABS: RBC MORPHOLOGY COMMENT ABNORMAL RBC MORPH
[2017-02-05 12:00] VITALS: BP 105/58
[2017-02-05 17:02] LABS: GLUCOSE,POINT OF CARE 93 MG/DL (70-110)
[2017-02-05 18:31] VITALS: BP 107/55
[2017-02-05 20:11] VITALS: BP 102/67
[2017-02-05] MEDS: INSULIN ASPART 100 UNITS/ML SQ PRN (20:46)
[2017-02-05] MEDS: INSULIN DETEMIR 100 UNITS/ML SQ SCH (20:47)
[2017-02-05] MEDS: PRAVASTATIN SODIUM 20 MG TABLET PO SCH (20:48)
[2017-02-05] MEDS: GABAPENTIN 100 MG CAPSULE PO SCH (20:48)
[2017-02-06 00:29] VITALS: BP 98/56
[2017-02-06 05:40] VITALS: BP 99/56
[2017-02-06 07:48] VITALS: BP 100/47
[2017-02-06] MEDS ORDERED: SODIUM CHLORIDE 0.9% 1,000 ML IV ONE (08:39)
[2017-02-06 11:53] VITALS: BP 108/41
[2017-02-06] MEDS: VITAMIN B COMP/VIT C/FOLIC ACID CAPSULE PO SCH (13:00)
[2017-02-06] MEDS: RANOLAZINE 500 MG SR TABLET PO SCH ×2 (13:00→20:37)
[2017-02-06] MEDS: OMEPRAZOLE 20 MG CAPSULE PO SCH (13:00)
[2017-02-06] MEDS: MECLIZINE HCL 25 MG TABLET PO SCH ×3 (13:00→20:37)
[2017-02-06] MEDS: ASPIRIN 81 MG EC TABLET PO SCH (13:00)
[2017-02-06] MEDS: ISOSORBIDE MONONITRATE 30 MG ER TABLET PO SCH ×2 (13:01→20:37)
[2017-02-06] MEDS: CLOPIDOGREL BISULFATE 75 MG TABLET PO SCH (13:01)
[2017-02-06] MEDS: METOCLOPRAMIDE HCL 5 MG TABLET PO SCH ×3 (13:01→20:37)
[2017-02-06] MEDS: RANITIDINE HCL 150 MG TABLET PO SCH (13:01)
[2017-02-06 14:22] LABS: GLUCOSE,POINT OF CARE 148 MG/DL (70-110)
[2017-02-06 15:16] VITALS: BP 103/58
[2017-02-06] MEDS: INSULIN ASPART 100 UNITS/ML SQ PRN (18:13)
[2017-02-06 20:11] VITALS: BP 108/50
[2017-02-06] MEDS: GABAPENTIN 100 MG CAPSULE PO SCH (20:37)
[2017-02-06] MEDS: PRAVASTATIN SODIUM 20 MG TABLET PO SCH (20:37)
[2017-02-06] MEDS: INSULIN DETEMIR 100 UNITS/ML SQ SCH (20:46)
[2017-02-07] VITALS (7 sets, daily range): BP systolic 100–113; BP diastolic 49–62
[2017-02-07] MEDS: ASPIRIN 81 MG EC TABLET PO SCH (10:02)
[2017-02-07] MEDS: VITAMIN B COMP/VIT C/FOLIC ACID CAPSULE PO SCH (10:03)
[2017-02-07] MEDS: ISOSORBIDE MONONITRATE 30 MG ER TABLET PO SCH ×2 (10:04→21:10)
[2017-02-07] MEDS: METOCLOPRAMIDE HCL 5 MG TABLET PO SCH ×3 (10:04→21:10)
[2017-02-07] MEDS: OMEPRAZOLE 20 MG CAPSULE PO SCH (10:05)
[2017-02-07] MEDS: LEVOFLOXACIN 250 MG TABLET PO SCH (10:05)
[2017-02-07] MEDS: RANITIDINE HCL 150 MG TABLET PO SCH (10:06)
[2017-02-07] MEDS: MECLIZINE HCL 25 MG TABLET PO SCH ×3 (10:06→21:10)
[2017-02-07] MEDS: RANOLAZINE 500 MG SR TABLET PO SCH ×2 (10:06→21:10)
[2017-02-07] MEDS: CLOPIDOGREL BISULFATE 75 MG TABLET PO SCH (10:07)
[2017-02-07] MEDS: INSULIN ASPART 100 UNITS/ML SQ PRN ×2 (12:06→18:07)
[2017-02-07 14:07] LABS: GLUCOSE,POINT OF CARE 125 MG/DL (70-110)
[2017-02-07 14:07] LABS: GLUCOSE COMMENT 1 Received Meds; GLUCOSE,POINT OF CARE 206 MG/DL (70-110)
[2017-02-07 14:22] LABS: GLUCOSE,POINT OF CARE 91 MG/DL (70-110)
[2017-02-07] MEDS ORDERED: SODIUM CHLORIDE 3% 15 ML NEB SOLUTION NEB ONE (17:14)
[2017-02-07] MEDS: INSULIN DETEMIR 100 UNITS/ML SQ SCH (21:00)
[2017-02-07] MEDS: GABAPENTIN 100 MG CAPSULE PO SCH (21:10)
[2017-02-07] MEDS: PRAVASTATIN SODIUM 20 MG TABLET PO SCH (21:10)
[2017-02-08] MEDS ORDERED: SODIUM CHLORIDE 3% 15 ML NEB SOLUTION NEB ONE (02:38)
[2017-02-08 04:48] VITALS: BP 105/56
[2017-02-08 07:29] LABS: CREATININE 4.07 mg/dL (0.60-1.30); POTASSIUM 4.7 mmol/L (3.5-5.1)
[2017-02-08 07:51] VITALS: BP 119/63
[2017-02-08] MEDS: MECLIZINE HCL 25 MG TABLET PO SCH ×3 (09:21→21:06)
[2017-02-08] MEDS: ASPIRIN 81 MG EC TABLET PO SCH (09:22)
[2017-02-08] MEDS: METOCLOPRAMIDE HCL 5 MG TABLET PO SCH ×3 (09:22→21:07)
[2017-02-08] MEDS: VITAMIN B COMP/VIT C/FOLIC ACID CAPSULE PO SCH (09:23)
[2017-02-08] MEDS: ISOSORBIDE MONONITRATE 30 MG ER TABLET PO SCH ×2 (09:23→21:06)
[2017-02-08] MEDS: CLOPIDOGREL BISULFATE 75 MG TABLET PO SCH (09:24)
[2017-02-08] MEDS: OMEPRAZOLE 20 MG CAPSULE PO SCH (09:24)
[2017-02-08] MEDS: RANOLAZINE 500 MG SR TABLET PO SCH ×2 (09:25→21:06)
[2017-02-08] MEDS: RANITIDINE HCL 150 MG TABLET PO SCH (09:25)
[2017-02-08 11:35] VITALS: BP 112/62
[2017-02-08] MEDS: INSULIN ASPART 100 UNITS/ML SQ PRN ×2 (11:45→17:48)
[2017-02-08 15:36] VITALS: BP 109/77
[2017-02-08 19:38] VITALS: BP 100/54
[2017-02-08] MEDS: GABAPENTIN 100 MG CAPSULE PO SCH (21:06)
[2017-02-08] MEDS: PRAVASTATIN SODIUM 20 MG TABLET PO SCH (21:06)
[2017-02-08] MEDS: INSULIN DETEMIR 100 UNITS/ML SQ SCH (21:24)
[2017-02-08 21:48] LABS: GLUCOSE,POINT OF CARE 127 MG/DL (70-110)
[2017-02-08 22:18] LABS: GLUCOSE,POINT OF CARE 98 MG/DL (70-110)
[2017-02-08 23:50] VITALS: BP 102/58
[2017-02-09 04:31] VITALS: BP 110/56
[2017-02-09 07:23] VITALS: BP 99/51
[2017-02-09 08:17] LABS: GLUCOSE COMMENT 1 Received Meds; GLUCOSE,POINT OF CARE 168 MG/DL (70-110)
[2017-02-09] MEDS: MECLIZINE HCL 25 MG TABLET PO SCH ×3 (09:00→20:45)
[2017-02-09] MEDS: METOCLOPRAMIDE HCL 5 MG TABLET PO SCH ×3 (09:00→20:41)
[2017-02-09] MEDS ORDERED: SODIUM CHLORIDE 0.9% 2,000 ML IV ONE (09:54)
[2017-02-09 11:45] VITALS: BP 127/42
[2017-02-09 15:49] VITALS: BP 126/70
[2017-02-09] MEDS: VITAMIN B COMP/VIT C/FOLIC ACID CAPSULE PO SCH (17:14)
[2017-02-09] MEDS: RANITIDINE HCL 150 MG TABLET PO SCH (17:14)
[2017-02-09] MEDS: CLOPIDOGREL BISULFATE 75 MG TABLET PO SCH (17:14)
[2017-02-09] MEDS: ASPIRIN 81 MG EC TABLET PO SCH (17:14)
[2017-02-09] MEDS: ISOSORBIDE MONONITRATE 30 MG ER TABLET PO SCH ×2 (17:14→20:45)
[2017-02-09] MEDS: LEVOFLOXACIN 250 MG TABLET PO SCH (17:14)
[2017-02-09] MEDS: OMEPRAZOLE 20 MG CAPSULE PO SCH (17:15)
[2017-02-09] MEDS: RANOLAZINE 500 MG SR TABLET PO SCH ×2 (17:15→20:42)
[2017-02-09 19:07] LABS: GLUCOSE COMMENT 1 Received Meds; GLUCOSE,POINT OF CARE 165 MG/DL (70-110)
[2017-02-09 19:07] LABS: GLUCOSE,POINT OF CARE 109 MG/DL (70-110)
[2017-02-09 20:11] VITALS: BP 116/77
[2017-02-09] MEDS: PRAVASTATIN SODIUM 20 MG TABLET PO SCH (20:42)
[2017-02-09] MEDS: GABAPENTIN 100 MG CAPSULE PO SCH (20:43)
[2017-02-09] MEDS: INSULIN DETEMIR 100 UNITS/ML SQ SCH (20:51)
[2017-02-09] MEDS: INSULIN ASPART 100 UNITS/ML SQ PRN (20:52)
[2017-02-10 00:49] VITALS: BP 101/52
[2017-02-10 05:56] VITALS: BP 106/53
[2017-02-10] MEDS ORDERED: HYDROCODONE/ACETAMINOPHEN 5-325 MG TABLET PO PRN (06:30)
[2017-02-10 07:34] LABS: BASOPHILS # (AUTO) 0.19 K/uL (0.00-0.20); BASOPHILS % (AUTO) 2.6 % (0.0-2.0); EOSINOPHILS # (AUTO) 0.18 K/uL (0.00-0.70); EOSINOPHILS % (AUTO) 2.44 % (1.0-6.0); HEMATOCRIT 32.6 % (36-46); HEMOGLOBIN 10.4 g/dL (12.0-16.0); LYMPHOCYTES # (AUTO) 0.9 K/uL (1.0-4.8); LYMPHOCYTES % (AUTO) 12.9 % (22.0-44.0); MEAN CORPUSCULAR HEMOGLOBIN 29.2 pg (26.0-34.0); MEAN CORPUSCULAR VOLUME 91 fL (80-100); MONOCYTES # (AUTO) 0.7 K/uL (0.1-1.0); MONOCYTES % (AUTO) 8.9 % (2.0-9.0); NEUTROPHILS # (AUTO) 5.3 K/uL (1.8-7.7); NEUTROPHILS % (AUTO) 73.1 % (40.0-70.0); PLATELET COUNT (AUTO) 140 K/uL (150-450); RED BLOOD CELL COUNT(AUTO) 3.57 MIL/uL (4.00-5.20); RED CELL DISTRIBUTION WIDTH 19.7 % (11.5-14.5); WHITE BLOOD COUNT (AUTO) 7.3 K/uL (4.5-11.0)
[2017-02-10 07:47] VITALS: BP 115/53
[2017-02-10 07:51] LABS: ALBUMIN 2.2 g/dL (3.4-5.0); BILIRUBIN,TOTAL 1.5 mg/dL (0.1-1.0); CALCIUM, TOTAL 7.5 mg/dL (8.8-10.5); CREATININE 3.51 mg/dL (0.60-1.30); MAGNESIUM 1.7 mg/dL (1.80-2.40); POTASSIUM 3.7 mmol/L (3.5-5.1); TOTAL PROTEIN, SERUM 5.6 g/dL (6.4-8.2)
[2017-02-10] MEDS: MECLIZINE HCL 25 MG TABLET PO SCH ×2 (08:37→18:13)
[2017-02-10] MEDS: CLOPIDOGREL BISULFATE 75 MG TABLET PO SCH (08:37)
[2017-02-10] MEDS: ASPIRIN 81 MG EC TABLET PO SCH (08:38)
[2017-02-10] MEDS: RANOLAZINE 500 MG SR TABLET PO SCH (08:38)
[2017-02-10] MEDS: OMEPRAZOLE 20 MG CAPSULE PO SCH (08:38)
[2017-02-10] MEDS: METOCLOPRAMIDE HCL 5 MG TABLET PO SCH ×2 (08:38→18:13)
[2017-02-10] MEDS: RANITIDINE HCL 150 MG TABLET PO SCH (08:38)
[2017-02-10] MEDS: ISOSORBIDE MONONITRATE 30 MG ER TABLET PO SCH (08:38)
[2017-02-10] MEDS: VITAMIN B COMP/VIT C/FOLIC ACID CAPSULE PO SCH (08:38)
[2017-02-10 11:16] VITALS: BP 120/55
[2017-02-10 14:33] LABS: RBC MORPHOLOGY COMMENT ABNORMAL RBC MORPH
[2017-02-10 16:31] VITALS: BP 123/59
[2017-02-10 21:12] LABS: GLUCOSE,POINT OF CARE 87 MG/DL (70-110)
[2017-02-10 21:16] LABS: GLUCOSE,POINT OF CARE 129 MG/DL (70-110)
[2017-02-10 21:16] LABS: GLUCOSE,POINT OF CARE 103 MG/DL (70-110)
[2017-02-10 21:17] LABS: GLUCOSE,POINT OF CARE 102 MG/DL (70-110)
[2017-02-16 15:19] LABS: COCCIDIOIDES BY CF(UCDAVIS) Negative; COCCIDIOIDES INTERP.(UCDAVIS) Comment:
== END 2017-02-10 18:35 | DRG 291 ==
LOC: EMS 11:23 → 5S 16:06 → ICU 02-03 15:30 → 5S 02-05 17:30
PROVIDERS: ADMIT Family Medicine; ATTEND Family Medicine
PROC: 5A1D60Z (ICD-10-PCS; principal; 2017-02-04)
DX: I13.2 Hypertensive heart and chronic kidney disease with heart failure and with stage 5 chronic kidney disease, or end stage renal disease (principal); I50.23 Acute on chronic systolic (congestive) heart failure; N18.6 End stage renal disease; E44.0 Moderate protein-calorie malnutrition; I31.3 Pericardial effusion (noninflammatory); J90 Pleural effusion, not elsewhere classified; R57.9 Shock, unspecified; I42.0 Dilated cardiomyopathy; E11.22 Type 2 diabetes mellitus with diabetic chronic kidney disease; I95.9 Hypotension, unspecified; D64.9 Anemia, unspecified; I25.5 Ischemic cardiomyopathy; E78.5 Hyperlipidemia, unspecified; K80.20 Calculus of gallbladder without cholecystitis without obstruction; I49.9 Cardiac arrhythmia, unspecified; E11.40 Type 2 diabetes mellitus with diabetic neuropathy, unspecified; I25.10 Atherosclerotic heart disease of native coronary artery without angina pectoris; E11.51 Type 2 diabetes mellitus with diabetic peripheral angiopathy without gangrene; M19.90 Unspecified osteoarthritis, unspecified site; Z87.891 Personal history of nicotine dependence; Z83.3 Family history of diabetes mellitus; Z79.82 Long term (current) use of aspirin; Z99.2 Dependence on renal dialysis; Z68.29 Body mass index [BMI] 29.0-29.9, adult; Z89.512 Acquired absence of left leg below knee; Z89.421 Acquired absence of other right toe(s); Z95.810 Presence of automatic (implantable) cardiac defibrillator; Z95.0 Presence of cardiac pacemaker; Z88.0 Allergy status to penicillin; I25.2 Old myocardial infarction; Z79.4 Long term (current) use of insulin
CPT/HCPCS: 71250; 82962; 83735; 84100; 86171; 87015; 87081; 87340; 90935; 93005; 93306; 94640; 94799; 97161; 97530; 99285; J1250; J1265; J2405; J7030; J7050